=== PATIENT | male | born 1955 | race Caucasian/White ===

== ENCOUNTER 2017-04-27 18:26 | Emergency (ER) | payer MEDICAID ==
[~2017-04-27] VITALS: Ht 172.7 cm; Wt 89.0 kg
[2017-04-27 22:04] LABS: HEMATOCRIT. 39.8 % (42.0-52.0); HEMOGLOBIN. 13.6 g/dL (14.0-18.0); MEAN CORPUSCULAR HEMOGLOBIN 30.7 pg (28.0-32.0); MEAN CORPUSCULAR VOLUME 89.7 fL (80.0-94.0); MEAN PLATELET VOLUME 7.2 fl (7.4-10.4); PLATELET 392 x1000/uL (130-400); RED BLOOD CELL COUNT 4.44 mill/uL (4.7-6.1); RED CELL DISTRIBUTION WIDTH 13.1 % (11.6-14.6)
[2017-04-27 22:14] LABS: CHLORIDE 103 mEq/L (98-107)
[2017-04-27 22:21] LABS: CARBON DIOXIDE 27 mEq/L (21-32)
[2017-04-27 22:23] LABS: TROPONIN I < 0.02 ng/mL (0.00-0.04)
[2017-04-27 22:25] LABS: PLATELET ESTIMATE NORMAL
[2017-04-27] MEDS ORDERED: SODIUM CHLORIDE 0.9% 1,000 ML IV ONE (22:27)
[2017-04-27] MEDS ORDERED: IPRATROPIUM/ALBUTEROL 0.5-3(2.5)MG/3ML NEB HHN ONE (22:30)
[2017-04-27] MEDS ORDERED: METHYLPREDNISOLONE SOD SUCC 125 MG/2 ML VIAL IV STA (22:57)
[2017-04-27] MEDS ORDERED: IPRATROPIUM BROMIDE (0.02%) 0.5MG/2.5ML NEB HHN STA (22:57)
[2017-04-27] MEDS ORDERED: AZITHROMYCIN 500 MG in DEXT 5% WATER 250 ML IV ONE (23:00)
[2017-04-27] MEDS ORDERED: ALBUTEROL (0.083%) 2.5MG/3ML NEB HHN SCH (23:00)
[2017-04-27] MEDS ORDERED: MAGNESIUM 2 G PREMIX 50 ML IV ONE (23:00)
[2017-04-27] MEDS ORDERED: CEFTRIAXONE 1 G PREMIX 50 ML IV ONE (23:00)
[2017-04-28] MEDS ORDERED: FUROSEMIDE 20MG/2ML VIAL IVP ONE (01:30)
[2017-04-28 05:45] VITALS: BP 111/81
== END 2017-04-28 05:53 | disposition home or self-care (01) ==
LOC: ER 19:20
DX: J18.9 Pneumonia, unspecified organism (principal); J44.1 Chronic obstructive pulmonary disease with (acute) exacerbation; M10.9 Gout, unspecified
CPT/HCPCS: 36415; 71045; 80053; 83690; 83880; 84484; 85025; 87804; 93005; 94640; 96361; 96365; 96366; 96367; 96375; 99285; J0456; J0696; J1940; J2930; J3475; J7620; J7060

== ENCOUNTER 2020-06-28 21:26 | Emergency (ER) | payer MEDICAID, OTHER ==
[~2020-06-28] VITALS: Ht 175.3 cm; Wt 123.0 kg
[2020-06-28] MEDS ORDERED: ASPIRIN 81MG TABLET PO ONE (21:45)
[2020-06-28 21:59] LABS: BASOPHILS % 0.9 % (0.0-2.0); EOSINOPHILS % 2.9 % (0.0-5.0); HEMATOCRIT. 45.2 % (42.0-52.0); HEMOGLOBIN. 15.7 g/dL (14.0-18.0); LYMPHOCYTES % 19.8 % (20.0-50.0); MEAN CORPUSCULAR HEMOGLOBIN 32.1 pg (28.0-32.0); MEAN CORPUSCULAR VOLUME 92.7 fL (80.0-94.0); MEAN PLATELET VOLUME 8.1 fl (7.4-10.4); MONOCYTES % 10.2 % (2.0-8.0); NEUTROPHILS % 66.2 % (40.0-76.0); PLATELET 239 x1000/uL (130-400); RED BLOOD CELL COUNT 4.87 mill/uL (4.7-6.1); RED CELL DISTRIBUTION WIDTH 13.6 % (11.6-14.6)
[2020-06-28 22:08] LABS: CHLORIDE 102 mEq/L (98-107)
[2020-06-28] MEDS ORDERED: ALBUTEROL (0.083%) 2.5MG/3ML NEB HHN STA (22:48)
[2020-06-28] MEDS ORDERED: IPRATROPIUM BROMIDE (0.02%) 0.5MG/2.5ML NEB HHN STA (22:48)
[2020-06-28] MEDS ORDERED: PREDNISONE 20MG TABLET PO STA (22:48)
[2020-06-28] MEDS ORDERED: P50 MT (22:50)
[2020-06-28] MEDS ORDERED: ALBU18HF2 IH (22:50)
[2020-06-29 00:10] VITALS: BP 134/78
== END 2020-06-29 00:41 | disposition home or self-care (01) ==
LOC: ER 21:26
DX: J44.9 Chronic obstructive pulmonary disease, unspecified (principal)
CPT/HCPCS: 36415; 71045; 80053; 83880; 84484; 85025; 93005; 94640; 99285; J7512; Z7610

== ENCOUNTER 2022-07-13 19:01 | Emergency (ER) | payer MEDICAID, OTHER ==
[~2022-07-13] VITALS: Ht 162.6 cm; Wt 109.0 kg
[~2022-07-13 19:01] MED LIST: ALBU18HF2 IH; P50 MT
[2022-07-13] MEDS ORDERED: KETOROLAC 60MG/2ML VIAL IM ONE (20:45)
[2022-07-13 20:54] VITALS: BP 159/86
[2022-07-13 23:42] LABS: CHLORIDE 103 mEq/L (98-107)
[2022-07-13 23:48] LABS: BASOPHILS % 0.8 % (0.0-2.0); EOSINOPHILS % 1.9 % (0.0-5.0); HEMATOCRIT. 44.5 % (42.0-52.0); HEMOGLOBIN. 15.4 g/dL (14.0-18.0); LYMPHOCYTES % 15.3 % (20.0-50.0); MEAN CORPUSCULAR HEMOGLOBIN 30.9 pg (28.0-32.0); MEAN CORPUSCULAR VOLUME 89.1 fL (80.0-94.0); MONOCYTES % 11.2 % (2.0-8.0); NEUTROPHILS % 70.8 % (40.0-76.0); PLATELET 389 x1000/uL (130-400); RED BLOOD CELL COUNT 4.99 mill/uL (4.7-6.1); RED CELL DISTRIBUTION WIDTH 13.4 % (11.6-14.6)
[2022-07-14] MEDS ORDERED: IBUP-2028 MT (00:10)
== END 2022-07-14 00:41 | disposition home or self-care (01) ==
LOC: ER 19:01
DX: M79.10 Myalgia, unspecified site (principal); G89.29 Other chronic pain; M10.9 Gout, unspecified
CPT/HCPCS: 36415; 80053; 85025; 96372; 99283; J1885

== ENCOUNTER 2022-07-30 13:18 | Emergency (ER) | payer MEDICARE, MEDICAID ==
[~2022-07-30] VITALS: Ht 177.8 cm; Wt 113.0 kg
[~2022-07-30 13:18] MED LIST changes: +IBUP-2028 MT
[2022-07-30] MEDS ORDERED: IBUPROFEN 600MG TABLET PO ONE (14:00)
[2022-07-30 14:49] VITALS: BP 121/72
== END 2022-07-30 14:37 | disposition home or self-care (01) ==
LOC: ER 13:18
DX: M79.10 Myalgia, unspecified site (principal)
CPT/HCPCS: 99283